=== PATIENT | female | born 1940 | race Caucasian/White ===

== ENCOUNTER → 2022-07-25 13:34 | Outpatient (REF) | payer MEDICARE, OTHER, SELFPAY ==
--- NOTE | 2022-07-25 13:48 | CA_ITS ---
Transthoracic Echocardiogram Patient (Last, First, Middle): Juliana Martinez, Gender: Female Date of : 1940 Age: 82 Procedure Date: 07/25/2022 Procedure Type: Transthoracic Echocardiogram Location: [facility] Height: 165.1 cm Weight: 65.32 kg BSA: 1.72 m2 Heart Rate: 72 bpm BP: 136 / 80 mmHg Catalytic Case Operator: SB Referring MD: Mame PHELPS Symptoms: [id number] Study Quality: Fair but adequate apical images ECG Rhythm: Sinus Conclusions: - 1. Normal LV systolic function with impaired relaxation filling pattern 2. Mild aortic regurgitation 3. Normal RV systolic pressure 4. Mildly dilated ascending aorta at 3.9 cm 5. No gross pericardial effusion Findings Left Ventricle Normal left ventricular size, thickness, and systolic function. The visually estimated ejection fraction is between 60-65%. Spectral Doppler is indicative of an impaired relaxation filling pattern. E/E prime ratio is between 8 and 15 consistent with indeterminate filling pressures. Right Ventricle Normal right ventricular cavity size and systolic function. Atria Both atria are normal in size. 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 There is no evidence of interatrial shunt. Aortic Valve There is mild calcification of the aortic valve. There is no aortic valve stenosis. There is mild aortic valve regurgitation. Mitral Valve There is mild anterior and moderate posterior mitral leaflet thickening. There is bowing of the posterior mitral leaflet without obvious prolapse. There is trace mitral valve regurgitation. There is no mitral valve stenosis. Pulmonic Valve The pulmonic valve was not well visualized. Tricuspid Valve Likely normal tricuspid valve structure and function. There is trace tricuspid valve regurgitation. The right ventricular systolic pressure is normal. The right ventricular systolic pressure is 26 mmHg. Normal right atrial pressure. There is no evidence of pulmonary hypertension. Great Vessels The pulmonary artery was not well visualized. There is mild dilatation of the ascending aorta measuring 3.90 cm. Venous The inferior vena cava is normal in size and collapses greater than 50% with inspiration. Pericardium/Pleural There is no evidence of pericardial effusion. Prior Study Comparison Changes noted compared to prior study dated: 02/13/2019. There is mildly dilated ascending aorta at 3.9 cm. No other significant change Measurements 2D Linear Measurements IVSd: 0.91 0.6-0.9/0.6-1.0 cm LVIDd: 5.35 3.9-5.3/4.2-5.9 cm LVIDd Index: 3.11 2.4-3.2/2.2-3.1 cm/m2 LVIDs: 3.32 2.0-3.6 cm LVPWd: 0.59 0.7-1.1 cm LA Diam: 3.60 2.7-3.8/3.0-4.0 cm LAIDs Index: 2.09 1.5-2.3 cm/m2 LV Mass: 174.14 67-162/88-224 g LV Mass Index: 101.25 43-95/49-115 g/m2 LVOT Diam: 2.30 3.0+(-)1.3 cm 2D Systolic Function EF 4C: 62.90 >55% Mitral Valve MV Pk E: 0.57 MV PK A: 1.00 MV Decel Time: 292.00 E/A: 0.60 E'Lateral: 4.68 E'Medial: 4.24 E/E' Med: 13.30 E/E' Lat: 12.10 PHT: 85.00 MVA PHT: 2.59 Decel [place]: 1.94 Aortic Valve AoV Pk Be: 1.28 AoV Pk Grad: 7.00 KIM: 2.98 AI Pk Be: 4.52 AI [place]: 1.97 LVOT LVOT Pk Be: 0.96 LVOT Mn Be: 0.63 LVOT VTI: 0.22 LVOT Pk Grad: 4.00 LVOT Mn Grad: 2.00 LVOT Diam: 2.30 LVOT Area: 4.15 Diastolic Function MV Pk E: 0.57 MV Pk A: 1.00 E/A: 0.60 E'Medial: 4.24 E/E' Med: 13.30 E' Laterial: 4.68 E/E' Lat: 12.10 Right Ventricle TAPSE (mm): 26.90 TVS' Be: 13.40 Tricuspid Valve TR Pk Be: 2.38 TR Pk Grad: 23.00 RA Press: 3.00 RVSP: 26.00 Great Vessels Aorta Sinus of Valsalva: 3.80 2.0-3.5 cm Ao Asc: 3.90 2.1-3.4 cm Pulmonary Valve PV Pk Be: 0.79 Peak PV Grad: 3.00 Updated in Other Vendor System with Status of Final Misael Roman MD electronically signed on 07/26/2022 6:09:40 PM with status of Final
== END ==
LOC: HO.CARD 13:34
PROVIDERS: PCP Internal Medicine; Visit Provider Registered Nurse
DX: R06.00 Dyspnea, unspecified (principal); R60.0 Localized edema
CPT/HCPCS: 93306